=== PATIENT | male | born 1960 | race Caucasian/White ===

== ENCOUNTER 2016-05-03 17:29 | Inpatient (IN) | payer BC ==
[~2016-05-03] VITALS: Ht 193 cm; Wt 113.4 kg
[~2016-05-03 17:29] MED LIST: BUPR150T8 PO; CLON1TAB PO; LAMO200T PO; LAMO200T3 PO
--- NOTE | 2016-05-03 17:57 | PHYS DOC ---
Past Medical History Past Medical History: Anxiety, Arthritis, Bipolar, Depression Past Surgical History: No Surgical History Alcohol Use: Occasionally Drug Use: None Adult General Chief Complaint Chief Complaint: CHEST PAIN HPI HPI Patient is a 55 year old male who presents with complaint of substernal chest pain. Patient states that his symptoms started upon awakening this morning. The patient states that he had pain along the left side of his chest that radiated towards the left side of his neck and his left arm. Patient states he had associated shortness of breath with his symptoms. Patient states his symptoms worsen the ground an hour prior to arrival. Patient had lightheadedness and dizziness as well as shortness of breath with chest pain. The patient went to urgent care and was referred to the emergency department due to symptoms. Patient states his symptoms are still present at this time and rates them at 8 out of 10 currently. Patient is not any fevers or associated cough. Review of Systems Review of Systems Constitutional: Lightheadedness, Denies fever or chills [] Eyes: Denies change in visual acuity, redness, or eye pain [] HENT: Denies nasal congestion or sore throat [] Respiratory: Shortness of breath [] Cardiovascular: Chest pain [] GI: Denies abdominal pain, nausea, vomiting, bloody stools or diarrhea [] : Denies dysuria or hematuria [] Musculoskeletal: Denies back pain or joint pain [] Integument: Denies rash or skin lesions [] Neurologic: Denies headache, focal weakness or sensory changes [] Current Medications Current Medications Current Medications Medications (Trade) Dose Ordered Sig/Leticia Start Time Stop Time Status Last Admin Dose Admin Aspirin (Children'S Aspirin) 324 mg 1X ONCE 05/03/16 18:30 05/03/16 18:31 DC 05/03/16 18:44 324 MG Fentanyl Citrate 50 mcg 50 mcg PRN Q15MIN PRN 05/03/16 18:30 05/04/16 18:29 05/03/16 21:19 50 MCG Ondansetron HCl (Zofran) 4 mg 1X ONCE 05/03/16 18:30 05/03/16 18:31 DC 05/03/16 18:44 4 MG Sodium Chloride (Iv Sodium Chloride 0.9% 1000ml Bag) 1,000 ml @ 100 mls/hr Q10H 05/03/16 18:21 05/04/16 04:20 05/03/16 18:44 100 MLS/HR Allergies Allergies Allergies Coded Allergies Type Severity Reaction Last Updated Verified No Known Drug Allergies 11/28/13 No Physical Exam Physical Exam Constitutional: Well developed, well nourished, no acute distress, non-toxic appearance. [] HENT: Normocephalic, atraumatic, bilateral external ears normal, oropharynx moist, no oral exudates, nose normal. [] Eyes: PERRLA, EOMI, conjunctiva normal, no discharge. [] Neck: Normal range of motion, no tenderness, supple, no stridor. [] Cardiovascular:Heart rate regular rhythm, no murmur [] Lungs & Thorax: Bilateral breath sounds clear to auscultation [] Abdomen: Bowel sounds normal, soft, no tenderness, no masses, no pulsatile masses. [] Skin: Warm, dry, no erythema, no rash. [] Back: No tenderness, no CVA tenderness. [] Extremities: No tenderness, no cyanosis, no clubbing, ROM intact, no edema. [] Neurologic: Alert and oriented X 3, normal motor function, normal sensory function, no focal deficits noted. [] Current Patient Data Vital Signs Vital Signs Date Time Temp Pulse Resp B/P Pulse Ox O2 Delivery O2 Flow Rate FiO2 05/03/16 19:11 84 23 159/88 98 Room Air 05/03/16 17:50 98.3 98.3 Lab Values Laboratory Tests Test 05/03/16 18:00 White Blood Count 6.6x10^3/uL (4.0-11.0) Red Blood Count 4.95x10^6/uL (4.30-5.70) Hemoglobin 15.5g/dL (13.0-17.5) Hematocrit 45.9% (39.0-53.0) Mean Corpuscular Volume 93fL (79-100) Mean Corpuscular Hemoglobin 31pg (25-35) Mean Corpuscular Hemoglobin Concent 34g/dL (31-37) Red Cell Distribution Width 13.2% (11.5-14.5) Platelet Count 250x10^3/uL (140-400) Neutrophils (%) (Auto) 65% (31-73) Lymphocytes (%) (Auto) 23% (24-48) L Monocytes (%) (Auto) 6% (0-9) Eosinophils (%) (Auto) 3% (0-3) Basophils (%) (Auto) 2% (0-3) Neutrophils # (Auto) 4.3x10^3uL (1.8-7.7) Lymphocytes # (Auto) 1.5x10^3/uL (1.0-4.8) Monocytes # (Auto) 0.4x10^3/uL (0.0-1.1) Eosinophils # (Auto) 0.2x10^3/uL (0.0-0.7) Basophils # (Auto) 0.1x10^3/uL (0.0-0.2) Sodium Level 148mmol/L (136-145) H Potassium Level 4.0mmol/L (3.5-5.1) Chloride Level 110mmol/L (98-107) H Carbon Dioxide Level 31mmol/L (21-32) Anion Gap 7 (6-14) Blood Urea Nitrogen 15mg/dL (8-26) Creatinine 0.9mg/dL (0.7-1.3) Estimated GFR (Cockcroft-Gault) 88.3 Glucose Level 122mg/dL (70-99) H Calcium Level 8.7mg/dL (8.5-10.1) Magnesium Level 2.1mg/dL (1.8-2.4) Total Bilirubin 0.4mg/dL (0.2-1.0) Direct Bilirubin 0.1mg/dL (0.0-0.2) Aspartate Amino Transferase (AST) 27U/L (15-37) Alanine Aminotransferase (ALT) 33U/L (16-63) Alkaline Phosphatase 98U/L (46-116) Creatine Kinase 350U/L (39-308) H Creatine Kinase MB (Mass) 9.9ng/mL (0.0-3.6) H Creatine Kinase MB Relative Index 2.8% (0-4) Troponin I Quantitative < 0.017ng/mL (0.000-0.055) AH-Got-A-Type Natriuretic Peptide 27pg/mL (0-124) Total Protein 6.7g/dL (6.4-8.2) Albumin 3.7g/dL (3.4-5.0) Laboratory Tests 05/03/16 18:00 Laboratory Tests 05/03/16 18:00 EKG EKG Interpreted by me: Heart rate 84, sinus rhythm, normal intervals, normal axis, no acute ST/T-wave abnormalities present [] Radiology/Procedures Radiology/Procedures One view AP chest x-ray interpreted by me: No infiltrates, no effusions, normal cardiac silhouette [] Course & Med Decision Making Course & Med Decision Making Pertinent Labs and Imaging studies reviewed. (See chart for details) The patient's lab work does not show immediate evidence of myocardial infarction. The patient however does continue to have left-sided chest pain despite treatment. The patient will be admitted to hospital for rule out of myocardial infarction. Patient was admitted Dr. Bo. A consult was placed to Dr. Morelos to follow patient in hospital. Dragon Disclaimer Dragon Disclaimer This electronic medical record was generated, in whole or in part, using a voice recognition dictation system. Departure Departure Impression: Primary Impression: Chest pain Disposition: ADMITTED INPATIENT Admitting Physician: Marli Bo Condition: STABLE Referrals: TAHIR MICHEL MD (PCP) Problem Qualifiers Primary Impression: Chest pain Chest pain type: unspecified Qualified Code: R07.9 - Chest pain, unspecified DARIN GUTIERREZ MD May 03, 2016 17:57
[2016-05-03] MEDS ORDERED: IV NORMAL SALINE 1000ML BAG 1,000 ML IV SCH (18:21)
[2016-05-03] MEDS ORDERED: ASPIRIN 81 MG TAB.CHEW PO ONE (18:30)
[2016-05-03] MEDS ORDERED: ONDANSETRON PF 4 MG/2 ML VIAL. IV ONE (18:30)
[2016-05-03 18:34] LABS: BASO # 0.1 x10^3/uL (0.0-0.2); BASO % 2 % (0-3); EOS % 3 % (0-3); HEMATOCRIT 45.9 % (39.0-53.0); HEMOGLOBIN 15.5 g/dL (13.0-17.5); LYMPH # 1.5 x10^3/uL (1.0-4.8); LYMPH % 23 % (24-48); MEAN CORPUSCULAR HEMOGLOBIN 31 pg (25-35); MEAN CORPUSCULAR HGB CONC 34 g/dL (31-37); MEAN CORPUSCULAR VOLUME 93 fL (79-100); MONO % 6 % (0-9); NEUT % 65 % (31-73); PLATELET COUNT 250 x10^3/uL (140-400); RED BLOOD COUNT 4.95 x10^6/uL (4.30-5.70); RED CELL DISTRIBUTION WIDTH 13.2 % (11.5-14.5); WHITE BLOOD COUNT 6.6 x10^3/uL (4.0-11.0)
[2016-05-03 18:47] LABS: CALCIUM 8.7 mg/dL (8.5-10.1); CREATININE 0.9 mg/dL (0.7-1.3); GFR 88.3
[2016-05-03] MEDS: FENTANYL PF 100 MCG/2 ML VIAL. IV PRN ×2 (18:47→21:19)
[2016-05-03 18:54] LABS: ALBUMIN 3.7 g/dL (3.4-5.0); DIRECT BILIRUBIN 0.1 mg/dL (0.0-0.2); MAGNESIUM 2.1 mg/dL (1.8-2.4); TOTAL BILIRUBIN 0.4 mg/dL (0.2-1.0); TOTAL PROTEIN 6.7 g/dL (6.4-8.2)
[2016-05-03 19:01] LABS: CKMB INDEX 2.8 % (0-4); CKMB MASS 9.9 ng/mL (0.0-3.6)
[2016-05-03] MEDS ORDERED: ACETAMINOPHEN 325 MG TABLET. PO PRN (19:30)
[2016-05-03] MEDS ORDERED: FENTANYL PF 100 MCG/2 ML VIAL. IV PRN (19:30)
[2016-05-03] MEDS ORDERED: ONDANSETRON PF 4 MG/2 ML VIAL. IV PRN ×2 (19:30)
--- NOTE | 2016-05-03 19:39 | PDOC1 ---
History and Physical Date of Admission Date of Admission DATE: 05/03/16 TIME: 19:33 Identification/Chief Complaint Chief Complaint CP Source Source: Chart review, Patient History of Present Illness History of Present Illness 55 y.o male who is a smoker, and hx Anxiety./depression on lamictal 400 qD, follows with psychiatrist and PCP Lorin arnold, admitted for CP r.o ACS Admitted 01/2016 for similar, MPI was neg. Loop recorder was also done as OP after the MPI was neg and he claims he never heard word from cards, he wore it for 2 weeks. Likely neg results,. Pt comes in bec of left sided chest pressure with radiation to left arm and jaw, some lightheadedness and dizziness,. no diaphoresis. First set CE neg. Not diabetic, no known CAD but is a smoker. BP on high side at ER, sbp 160s Past Medical History Cardiovascular: Other Pulmonary: No pertinent hx CENTRAL NERVOUS SYSTEM: Other GI: No pertinent hx Heme/Onc: No pertinent hx Hepatobiliary: Hep A/B/C Psych: Anxiety, Bipolar, Depression Musculoskeletal: low back pain, Osteoarthritis Rheumatologic: No pertinent hx Infectious disease: No pertinent hx Renal/: No pertinent hx Endocrine: No pertinent hx Past Surgical History Past Surgical History: No pertinent history Family History Family History: No Significant, Hypertension Social History Smoke: <1 pack per day ALCOHOL: occassional Drugs: None Current Problem List Problem List Problems Medical Problems: (1) Chest pain Status: Acute Problems: Current Medications Current Medications Current Medications Aspirin (Children'S Aspirin) 324 mg 1X ONCE PO Last administered on 05/03/16 18:44; Start 05/03/16 at 18:30; Stop 05/03/16 at 18:31; Status DC Fentanyl Citrate 50 mcg 50 mcg PRN Q15MIN PRN IV PAIN GREATER THAN 3/10 Last administered on 05/03/16 18:47; Start 05/03/16 at 18:30; Stop 05/04/16 at 18:29 Sodium Chloride (Iv Sodium Chloride 0.9% 1000ml Bag) 1,000 ml @ 100 mls/hr Q10H IV Last administered on 05/03/16 18:44; Start 05/03/16 at 18:21; Stop at 04:20 Ondansetron HCl (Zofran) 4 mg 1X ONCE IV Last administered on 05/03/16t 18:44 ; Start 05/03/16 at 18:30; Stop 05/03/16 at 18:31; Status DC Ondansetron HCl (Zofran) 4 mg PRN Q8HRS PRN IV NAUSEA/VOMITING; Start 05/03/16 at 19:30; Stop 05/04/16 at 19:29 Fentanyl Citrate 50 mcg 50 mcg PRN Q2HR PRN IV PAIN; Start 05/03/16 at 19:30; Stop 05/04/16 at 19:29 Sodium Chloride (Iv Sodium Chloride 0.9% 1000ml Bag) 1,000 ml @ 100 mls/hr Q10H IV ; Start 05/03/16 at 19:21; Stop 05/04/16 at 19:20 Acetaminophen (Tylenol) 650 mg PRN Q4HRS PRN PO FEVER; Start 05/03/16 at 19:30 ; Stop 05/04/16 at 19:29 Active Scripts Active Reported Lamotrigine 200 Mg Tablet 1 Tab PO BID Lamictal (Lamotrigine) 200 Mg Tablet 200 Mg PO DAILY Allergies Allergies: Coded Allergies: No Known Drug Allergies (Unverified , 11/28/13) ROS General: No: Appetite, Chills, Fatigue, Malaise, Night Sweats, Other PSYCHOLOGICAL ROS: No: Anxiety, Behavioral Disorder, Concentration difficultie , Decreased libido, Depression, Disorientation, Hallucinations, Hostility, Irritablity, Memory difficulties, Mood Swings, Obsessive thoughts, Other, Physical abuse, Sexual abuse, Sleep disturbances, Suicidal ideation Eyes: No Blurry vision, No Decreased vision, No Double vision, No Dry eyes, No Excessive tearing, No Eye Pain, No Itchy Eyes, No Loss of vision, No Other, No Photophobia, No Scotomata, No Uses contacts, No Uses glasses HEENT: No: Epistaxis, Heacaches, Hearing change, Nasal congestion, Nasal discharge, Oral lesions, Other, Sinus pain, Sneezing, Snoring, Sore Throat, Tinnitus, Vertigo, Visual Changes, Vocal changes ALLERGY AND IMMUNOLOGY: No: Hives, Insect Bite Sensitivity, Itchy/Watery Eyes, Nasal Congestion, Other, Post Nasal Drip, Seasonal Allergies ENDOCRINE: No: Breast Changes, Galactorrhea, Hair Pattern Changes, Hot Flashes , Malaise/lethargy, Mood Swings, Other, Palpitations, Polydipsia/polyuria, Skin Changes, Temperature Intolerance, Unexpected Weight Changes Respiratory: No: Cough, Hemoptysis, Orthopnea, Other, Pleuritic Pain, SOB with excertion, Shortness of breath, Sputum Changes, Stridor, Tachypnea, Wheezing Cardiovascular: yes Chest Pain, yes Lt Headedness Gastrointestinal: No Abdominal Pain, No Constipation, No Diarrhea, No Hematochezia, No Melena, No Nausea, No Other, No Vomiting Genitourinary: No , No , No , No , No , No , No , No Discharge, No Dysuria, No Flank Pain, No Frequency, No Hematuria, No Incontinence, No Other, No Pain, No Retention, No Urgency Musculoskeletal: No Gait Disturbance, No Joint Pain, No Joint Stiffness, No Joint Swelling, No Muscle Pain, No Muscular Weakness, No Other, No Pain In:, No Swelling In: Neurological: No Behavorial Changes, No Bowel/Bladder ControlChng, No Confusion , No Dizziness, No Gait Disturbance, No Headaches, No Impaired Coord/balance, No Memory Loss, No Numbness/Tingling, No Other, No Seizures, No Speech Problems , No Tremors, No Visual Changes, No Weakness Skin: No Acne, No Dry Skin, No Eczema, No Hair Changes, No Lumps, No Mole Changes, No Mottling, No Nail Changes, No Other, No Pruritus, No Rash, No Skin Lesion Changes Physical Exam General: Alert, Oriented X3, Cooperative, No acute distress HEENT: Atraumatic, PERRLA, EOMI, Mucous membr. moist/pink Lungs: Clear to auscultation, Normal air movement Heart: S1S2, RRR, no thrills, no rubs, no gallops Cardiovascular: S1, S2 Abdomen: Normal bowel sounds, Soft, No tenderness, No hepatosplenomegaly, No masses Male Genitals Exam: normal genitalia, normal prostate Rectal Exam: not examined PELVIC: Nml ext genitalia Extremities: No clubbing, No cyanosis, No edema, Normal pulses, No tenderness/ swelling Skin: No rashes, No breakdown, No significant lesion Neuro: Normal gait, Normal speech, Strength at 5/5 X4 ext, Normal tone, Sensation intact, Cranial nerves 3-12 NL, Reflexes 2+ Psych/Mental Status: Mental status NL, Mood NL Vitals Vitals Vital Signs Date Time Temp Pulse Resp B/P Pulse Ox O2 Delivery O2 Flow Rate FiO2 05/03/16 18:47 20 99 Room Air 05/03/16 17:50 98.3 89 177/94 98.3 Labs Labs Laboratory Tests Test 05/03/16 18:00 White Blood Count 6.6x10^3/uL (4.0-11.0) Red Blood Count 4.95x10^6/uL (4.30-5.70) Hemoglobin 15.5g/dL (13.0-17.5) Hematocrit 45.9% (39.0-53.0) Mean Corpuscular Volume 93fL (79-100) Mean Corpuscular Hemoglobin 31pg (25-35) Mean Corpuscular Hemoglobin Concent 34g/dL (31-37) Red Cell Distribution Width 13.2% (11.5-14.5) Platelet Count 250x10^3/uL (140-400) Neutrophils (%) (Auto) 65% (31-73) Lymphocytes (%) (Auto) 23% (24-48) Monocytes (%) (Auto) 6% (0-9) Eosinophils (%) (Auto) 3% (0-3) Basophils (%) (Auto) 2% (0-3) Neutrophils # (Auto) 4.3x10^3uL (1.8-7.7) Lymphocytes # (Auto) 1.5x10^3/uL (1.0-4.8) Monocytes # (Auto) 0.4x10^3/uL (0.0-1.1) Eosinophils # (Auto) 0.2x10^3/uL (0.0-0.7) Basophils # (Auto) 0.1x10^3/uL (0.0-0.2) Sodium Level 148mmol/L (136-145) Potassium Level 4.0mmol/L (3.5-5.1) Chloride Level 110mmol/L (98-107) Carbon Dioxide Level 31mmol/L (21-32) Anion Gap 7 (6-14) Blood Urea Nitrogen 15mg/dL (8-26) Creatinine 0.9mg/dL (0.7-1.3) Estimated GFR (Cockcroft-Gault) 88.3 Glucose Level 122mg/dL (70-99) Calcium Level 8.7mg/dL (8.5-10.1) Magnesium Level 2.1mg/dL (1.8-2.4) Total Bilirubin 0.4mg/dL (0.2-1.0) Direct Bilirubin 0.1mg/dL (0.0-0.2) Aspartate Amino Transf (AST/SGOT) 27U/L (15-37) Alanine Aminotransferase (ALT/SGPT) 33U/L (16-63) Alkaline Phosphatase 98U/L (46-116) Creatine Kinase 350U/L (39-308) Creatine Kinase MB (Mass) 9.9ng/mL (0.0-3.6) Creatine Kinase MB Relative Index 2.8% (0-4) Troponin I Quantitative < 0.017ng/mL (0.000-0.055) CK-Hbf-F-Type Natriuretic Peptide 27pg/mL (0-124) Total Protein 6.7g/dL (6.4-8.2) Albumin 3.7g/dL (3.4-5.0) Laboratory Tests Test 05/03/16 18:00 White Blood Count 6.6x10^3/uL (4.0-11.0) Red Blood Count 4.95x10^6/uL (4.30-5.70) Hemoglobin 15.5g/dL (13.0-17.5) Hematocrit 45.9% (39.0-53.0) Mean Corpuscular Volume 93fL (79-100) Mean Corpuscular Hemoglobin 31pg (25-35) Mean Corpuscular Hemoglobin Concent 34g/dL (31-37) Red Cell Distribution Width 13.2% (11.5-14.5) Platelet Count 250x10^3/uL (140-400) Neutrophils (%) (Auto) 65% (31-73) Lymphocytes (%) (Auto) 23% (24-48) Monocytes (%) (Auto) 6% (0-9) Eosinophils (%) (Auto) 3% (0-3) Basophils (%) (Auto) 2% (0-3) Neutrophils # (Auto) 4.3x10^3uL (1.8-7.7) Lymphocytes # (Auto) 1.5x10^3/uL (1.0-4.8) Monocytes # (Auto) 0.4x10^3/uL (0.0-1.1) Eosinophils # (Auto) 0.2x10^3/uL (0.0-0.7) Basophils # (Auto) 0.1x10^3/uL (0.0-0.2) Sodium Level 148mmol/L (136-145) Potassium Level 4.0mmol/L (3.5-5.1) Chloride Level 110mmol/L (98-107) Carbon Dioxide Level 31mmol/L (21-32) Anion Gap 7 (6-14) Blood Urea Nitrogen 15mg/dL (8-26) Creatinine 0.9mg/dL (0.7-1.3) Estimated GFR (Cockcroft-Gault) 88.3 Glucose Level 122mg/dL (70-99) Calcium Level 8.7mg/dL (8.5-10.1) Magnesium Level 2.1mg/dL (1.8-2.4) Total Bilirubin 0.4mg/dL (0.2-1.0) Direct Bilirubin 0.1mg/dL (0.0-0.2) Aspartate Amino Transf (AST/SGOT) 27U/L (15-37) Alanine Aminotransferase (ALT/SGPT) 33U/L (16-63) Alkaline Phosphatase 98U/L (46-116) Creatine Kinase 350U/L (39-308) Creatine Kinase MB (Mass) 9.9ng/mL (0.0-3.6) Creatine Kinase MB Relative Index 2.8% (0-4) Troponin I Quantitative < 0.017ng/mL (0.000-0.055) WC-Ehs-O-Type Natriuretic Peptide 27pg/mL (0-124) Total Protein 6.7g/dL (6.4-8.2) Albumin 3.7g/dL (3.4-5.0) VTE Prophylaxis Ordered VTE Prophylaxis Devices: Yes VTE Pharmacological Prophylaxi: Yes Assessment/Plan Assessment/Plan 1. CP r.o ACS - recent MPI in jan 2016 and possibly even event monitor done as OP neg, CArdiac cath might then be in order - he is not too keen about the idea but agreeable if that is needed 2. ELevated BP, no dx HTN 3. SMOker PLAN: Cycle CE CArds consult Clonidine prn for elevated BP Resume home lamictal NPO after MN Dw pt and ER mD Seen at ER DAYANA BAXTER MD May 03, 2016 19:39
[2016-05-03] MEDS ORDERED: ZOLPIDEM 5 MG TABLET. PO PRN (19:45)
[2016-05-03 21:27] VITALS: BP 150/91
[2016-05-03] MEDS: IV NORMAL SALINE 1000ML BAG 1,000 ML IV SCH (21:29)
[2016-05-03 23:00] VITALS: BP 150/91
--- NOTE | 2016-05-04 00:04 | ACF ---
Admission Forms Criteria CHEST PAIN Clinical Indications for Admission to Inpatient Care (Place 'X' for any and all applicable criteria): Admission is indicated for chest pain and ANY ONE of the following(1)(2)(3)(4)(5 ): [ ]I. Angina with acute coronary syndrome (Also use Myocardial Infarction or Angina guideline) [ ]II. Hemodynamic instability [ ]III. Angina needing acute intervention as indicated by ALL of the following( 11)(12): [ ]a) Unstable angina is present as indicated by angina that is ANY ONE of the following: []i) New onset [ ]ii) Nocturnal [ ]iii) Prolonged at rest [ ]iv) Progressive [ ]b) Angina warrants acute intervention as indicated by ANY ONE of the following: [ ]i) Recurrent angina (e.g, not responding as previously to treatment) [ ]ii) Angina at rest or with low-level activities despite initial medical therapy [ ]iii) New or presumably new ST-segment depression on ECG [ ]iv) Signs or symptoms of heart failure (eg, dyspnea, pulmonary edema) [ ]v) New or worsening mitral regurgitation [ ]vi) Hemodynamic instability [ ]vii) Dangerous arrhythmia (eg, sustained ventricular tachycardia) [ ]viii) History of percutaneous coronary intervention within 6 months [ ]ix) History of coronary artery bypass graft surgery [ ]x) JOYA risk score of 2 or greater[A] [ ]xi) History of Diabetes(14) [ ]xii) High-risk cardiac ischemia findings on noninvasive testing (e.g, echocardiogram, treadmill testing, nuclear scan) [ ]xiii) Chronic renal insufficiency (ie, estimated GFR less than 60 mL/min/1.732m) [ ]xiv) Left ventricular ejection fraction less than 40% [ ]IV. Evidence of MN (eg, cardiac biomarkers positive, ST-segment elevation on ECG) also use Myocardial Infarction Criteria Form. [ ]V. Pulmonary edema [ ]. Respiratory distress [ ]VII. Chest pain indicative of serious diagnosis other than coronary artery disease (eg, aortic dissection) [ ]VIII. Contraindications and/or Inappropriate clinical situations for Observational Care in patients with Chest Pain, when ANY ONE of the following is required: [ ]a) Patient with risk factor for pulmonary embolism, acute coronary syndrome and myocardial infarction (18) [ ]b) Patient with Pulmonary embolism require an average LOS of 4.3 days, therefore emergency department observation management is inappropriate 18,23 [ ]c) Painful condition/s in the elderly, have the highest rate of recidivism after emergency department observation management (10.8%) 20,21,22 [ ]d) Elevated cardiac biomarker requires intensive and exhaustive care (19) [X ]IX. General contraindications and/or Inappropriate clinical situations for Observational Care in patients with Chest Pain, when ANY ONE of the following is required: [X ]a) Prediction of prolongation of LOS based on ANY ONE of the following may be considered as a contraindication for observational care 2, 3, 4, 5, 6, 7, 8, 9, 10, 11 [ ]i) Age > 65 yrs. [ ]ii) Patient arriving by ambulance [ ]iii) Patient with high acuity [ X]iv) Patient requiring vital sign monitoring [X ]v) Patient on IV medication [ ]b) Systolic blood pressures 180mmHg 3,12 [ ]c) Patient with altered mental status including delirium and other alteration of consciousness, (3) [ ]d) Patient whose discharge disposition will be to a residential home or rehabilitation home should not be managed in Emergency Department Observation Unit. CMS rule requires 3 days hospital stay before such placement. 3,13 [ ]e) Patient with failure to thrive due to broad array of etiologies 3,16,17 [ ]f) Inability to ambulate 3,14 Extended stay beyond goal length of stay may be needed for (1)(28): [ ]a) Specific condition diagnosed after evaluation (eg, pulmonary embolism, aortic dissection) [ ]b) Unstable angina [ ]c) Continued suspicion of acute coronary syndrome with inability to complete needed cardiac evaluation (eg, patient clinically unable to undergo stress testing) [ ]d) Myocardial infarction (Contents from ANGINA and CHEST PAIN clinical indications for admission to inpatient care have been integrated in this form) The original [facility] content created by [employer] ([employer]) has been revised. The portions of the content which have been revised are identified through the use of italic text or in bold, and [facility] has neither reviewed nor approved the modified material. All other unmodified content is copyright [facility]. Please see references footnoted in the original [facility] edition 2016 Admission Criteria Met?: Yes ROBYN VIDALES May 04, 2016 00:04
[2016-05-04 00:50] VITALS: BP 150/91
[2016-05-04] MEDS: FENTANYL PF 100 MCG/2 ML VIAL. IV PRN ×2 (01:10→09:15)
[2016-05-04] MEDS: NICOTINE 21MG PATCH. TD PRN ×2 (01:11→13:09)
[2016-05-04 03:59] VITALS: BP 136/77
[2016-05-04 05:00] LABS: BASO % 1 % (0-3); EOS % 4 % (0-3); HEMATOCRIT 42.5 % (39.0-53.0); HEMOGLOBIN 14.2 g/dL (13.0-17.5); LYMPH # 2.3 x10^3/uL (1.0-4.8); LYMPH % 31 % (24-48); MEAN CORPUSCULAR HEMOGLOBIN 31 pg (25-35); MEAN CORPUSCULAR HGB CONC 33 g/dL (31-37); MEAN CORPUSCULAR VOLUME 93 fL (79-100); MONO % 8 % (0-9); NEUT % 56 % (31-73); PLATELET COUNT 218 x10^3/uL (140-400); RED BLOOD COUNT 4.57 x10^6/uL (4.30-5.70); RED CELL DISTRIBUTION WIDTH 13.3 % (11.5-14.5); WHITE BLOOD COUNT 7.4 x10^3/uL (4.0-11.0)
[2016-05-04] MEDS: IV NORMAL SALINE 1000ML BAG 1,000 ML IV SCH (05:25)
[2016-05-04 05:26] LABS: CALCIUM 8.4 mg/dL (8.5-10.1); CREATININE 0.8 mg/dL (0.7-1.3); GFR 101.1
--- NOTE | 2016-05-04 06:17 | EKG ---
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 RI6.01 Unconfirmed report Compared to ECG 02/13/2016 13:43:00 Atrial abnormality now present Electronically Signed On 05-20-2016 9:47:13 TUFT MACHINE OPERATOR by Sahil Walker
[2016-05-04 08:00] VITALS: BP 142/91
--- NOTE | 2016-05-04 08:17 | RAD ---
Portable chest, 05/03/2016: History: Chest pain The heart size and pulmonary vascularity are normal. No pulmonary infiltrate is seen. There is no evidence of pleural fluid. IMPRESSION: No acute cardiopulmonary abnormality is detected.
[2016-05-04] MEDS ORDERED: lamoTRIgine 100 MG TABLET. PO SCH (09:00)
--- NOTE | 2016-05-04 09:22 | PDOC2 ---
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 Siddharth Sherman SOURCE Source: Chart review, Patient HISTORY OF PRESENT ILLNESS HISTORY OF PRESENT ILLNESS 55 year old male who awakened with left upper chest and shoulder pain about 0600 yesterday. 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 No other associated symptoms during the day. 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 Finally presented to ER about 1730 for evaluation. EKG without acute changes and troponin levels X 2 not consistent with ACS. No significant findings in CXR. Accelerated HTN POA with SBP of 177. Continues to request IV narcotics for pain. Reason for Visit: left upper chest pain PAST MEDICAL HISTORY Cardiovascular: Other (elevated BP without diagnosis of HTN) Pulmonary: No pertinent hx CENTRAL NERVOUS SYSTEM: Other (none) GI: No pertinent hx Heme/Onc: No pertinent hx Hepatobiliary: Hep A/B/C (hep C; "cured" ) Psych: Anxiety, Addictions (ETOH), Depression Musculoskeletal: Osteoarthritis Rheumatologic: No pertinent hx Infectious disease: No pertinent hx ENT: No pertinent hx Renal/: Other (renal calculi) Endocrine: No pertinent hx Dermatology: No pertinent hx PAST SURGICAL HISTORY Past Surgical History: No pertinent history FAMILY HISTORY Family History: Hypertension SOCIAL HISTORY Smoke: 1 pack per day (since age 18) ALCOHOL: heavy (one beer daily & 6 -12 beers on weekends) Drugs: None CURRENT MEDICATIONS CURRENT MEDICATIONS Current Medications Medications (Trade) Dose Ordered Sig/Leticia Route PRN Reason Start Time Stop Time Status Last Admin Dose Admin Aspirin (Children'S Aspirin) 324 mg 1X ONCE PO 05/03/16 18:30 05/03/16 18:31 DC 05/03/16 18:44 Fentanyl Citrate 50 mcg 50 mcg PRN Q15MIN PRN IV PAIN GREATER THAN 3/10 05/03/16 18:30 05/04/16 18:29 05/04/16 09:15 Sodium Chloride (Iv Sodium Chloride 0.9% 1000ml Bag) 1,000 ml @ 100 mls/hr Q10H IV 05/03/16 18:21 05/04/16 04:20 DC 05/03/16 18:44 Ondansetron HCl 4 mg 4 mg 1X ONCE IV 05/03/16 18:30 05/03/16 18:31 DC 05/03/16 18:44 Sodium Chloride (Iv Sodium Chloride 0.9% 1000ml Bag) 1,000 ml @ 100 mls/hr Q10H IV 05/03/16 19:21 05/04/16 19:20 05/04/16 05:25 Nicotine (Nicoderm Cq 21mg) 1 patch PRN DAILY PRN TD SMOKING CESSATION 05/03/16 19:30 05/04/16 01:11 ALLERGIES ALLERGIES: Coded Allergies: No Known Drug Allergies (Unverified , 11/28/13) ROS Review of System 14 point review with pertinent positives PHYSICAL EXAM General: Alert, Oriented X3, Cooperative, No acute distress HEENT: Atraumatic, PERRLA Lungs: Clear to auscultation, Normal air movement Heart: Regular rate, Normal S1, Normal S2, No murmurs, Other (pain ? reproducible - unclear) Abdomen: Normal bowel sounds, Soft Extremities: No edema, Normal pulses Skin: No rashes Neuro: Normal speech Psych/Mental Status: Mental status NL, Mood NL MUSCULOSKELETAL: No deformity VITALS VITALS Vital Signs Date Time Temp Pulse Resp B/P Pulse Ox O2 Delivery O2 Flow Rate FiO2 05/04/16 09:15 20 Room Air 05/04/16 08:00 98.3 71 142/91 94 98.3 LABS Lab: Laboratory Tests Test 05/03/16 18:00 05/04/16 01:05 05/04/16 04:00 05/04/16 08:40 White Blood Count 6.6x10^3/uL (4.0-11.0) 7.4x10^3/uL (4.0-11.0) Red Blood Count 4.95x10^6/uL (4.30-5.70) 4.57x10^6/uL (4.30-5.70) Hemoglobin 15.5g/dL (13.0-17.5) 14.2g/dL (13.0-17.5) Hematocrit 45.9% (39.0-53.0) 42.5% (39.0-53.0) Mean Corpuscular Volume 93fL (79-100) 93fL (79-100) Mean Corpuscular Hemoglobin 31pg (25-35) 31pg (25-35) Mean Corpuscular Hemoglobin Concent 34g/dL (31-37) 33g/dL (31-37) Red Cell Distribution Width 13.2% (11.5-14.5) 13.3% (11.5-14.5) Platelet Count 250x10^3/uL (140-400) 218x10^3/uL (140-400) Neutrophils (%) (Auto) 65% (31-73) 56% (31-73) Lymphocytes (%) (Auto) 23% (24-48) 31% (24-48) Monocytes (%) (Auto) 6% (0-9) 8% (0-9) Eosinophils (%) (Auto) 3% (0-3) 4% (0-3) Basophils (%) (Auto) 2% (0-3) 1% (0-3) Neutrophils # (Auto) 4.3x10^3uL (1.8-7.7) 4.1x10^3uL (1.8-7.7) Lymphocytes # (Auto) 1.5x10^3/uL (1.0-4.8) 2.3x10^3/uL (1.0-4.8) Monocytes # (Auto) 0.4x10^3/uL (0.0-1.1) 0.6x10^3/uL (0.0-1.1) Eosinophils # (Auto) 0.2x10^3/uL (0.0-0.7) 0.3x10^3/uL (0.0-0.7) Basophils # (Auto) 0.1x10^3/uL (0.0-0.2) 0.0x10^3/uL (0.0-0.2) Sodium Level 148mmol/L (136-145) 145mmol/L (136-145) Potassium Level 4.0mmol/L (3.5-5.1) 4.0mmol/L (3.5-5.1) Chloride Level 110mmol/L (98-107) 110mmol/L (98-107) Carbon Dioxide Level 31mmol/L (21-32) 27mmol/L (21-32) Anion Gap 7 (6-14) 8 (6-14) Blood Urea Nitrogen 15mg/dL (8-26) 15mg/dL (8-26) Creatinine 0.9mg/dL (0.7-1.3) 0.8mg/dL (0.7-1.3) Estimated GFR (Cockcroft-Gault) 88.3 101.1 Glucose Level 122mg/dL (70-99) 85mg/dL (70-99) Calcium Level 8.7mg/dL (8.5-10.1) 8.4mg/dL (8.5-10.1) Magnesium Level 2.1mg/dL (1.8-2.4) Total Bilirubin 0.4mg/dL (0.2-1.0) Direct Bilirubin 0.1mg/dL (0.0-0.2) Aspartate Amino Transf (AST/SGOT) 27U/L (15-37) Alanine Aminotransferase (ALT/SGPT) 33U/L (16-63) Alkaline Phosphatase 98U/L (46-116) Creatine Kinase 350U/L (39-308) Creatine Kinase MB (Mass) 9.9ng/mL (0.0-3.6) Creatine Kinase MB Relative Index 2.8% (0-4) Troponin I Quantitative < 0.017ng/mL (0.000-0.055) < 0.017ng/mL (0.000-0.055) < 0.017ng/mL (0.000-0.055) LE-Fvw-K-Type Natriuretic Peptide 27pg/mL (0-124) Total Protein 6.7g/dL (6.4-8.2) Albumin 3.7g/dL (3.4-5.0) IMAGES IMAGES CXR - without acute findings EKG EKG no acute changes ECHOCARDIOGRAM ECHOCARDIOGRAM : TTE: The left ventricular systolic function is normal. The Ejection Fraction is 55%. There is normal LV segmental wall motion. Transmitral Doppler flow pattern is Grade I-abnormal relaxation pattern. No significant valvular stenosis or regurgitation. There is no evidence of significant pericardial effusion. STRESS TEST STRESS TEST 02/14/2016: Regadenoson MPI: 1. Regadenoson cardioisotope stress test did not show any evidence of ischemia or infarct. 2. Normal left ventricular systolic function with ejection fraction calculated at 63%. 3. Low risk for cardiac events. ASSESSMENT/PLAN ASSESSMENT/PLAN 1. CP - atypical no acute changes in EKG and troponin levels not consistent with AMI MPI 01/2016 - non-ischemic and low risk echo 01/2016 without significant findings other than diastolic dysfunction no further cardiac evaluation - musculoskeletal vs HTN induced 2. hypertension, benign essential with DD in echo - start ACEI daily; f/u in office in 4 weeks 3. palpitation history event monitor completed Mar 2016 without significant findings 4. polysubstance abuse tobacco and ETOH 6. HLD LDL s = 86, 01/2016 HDLs = 82 7. ? of hypothyroidism TSH of 5.254 - 01/2016 defer to primary service Agreeable with discharge and f/u in office in 4 weeks to re-evaluate BP and left upper chest/shoulder pain Problems: CASS BEDOYA MD 05/05/16 0528: CARDIAC CONSULT ALLERGIES ALLERGIES: Coded Allergies: No Known Drug Allergies (Unverified , 11/28/13) ASSESSMENT/PLAN ASSESSMENT/PLAN Patient seen and examined. Agree with BAKESHOP CLEANER's assessment and plan. CP atypical. KS ruled out. Recent echo showed normal LV function and MPI did not show any ischemia. No further cardiac workup is indicated at this time. Thank you for your consultation. Problems: JESUS DIAZ APRN May 04, 2016 09:22 CASS BEDOYA MD May 05, 2016 05:28
[2016-05-04 11:05] VITALS: BP 129/74
[2016-05-04] MEDS ORDERED: LISINOPRIL 10 MG TABLET PO SCH (12:00)
[2016-05-04 16:30] VITALS: BP 137/83
[2016-05-04] MEDS ORDERED: ACET325T16 PO (17:52)
[2016-05-04] MEDS ORDERED: NAPR375T3 PO (17:52)
--- NOTE | 2016-05-05 23:46 | DS ---
DATE OF DISCHARGE: 05/04/2016 CHIEF COMPLAINT: Chest pain. HOSPITAL COURSE: The patient is a 55-year-old obese gentleman who presented to the hospital with chest pain. He actually had been admitted for the same in 01/2016 and had complete workup including MPI and echo, which were all negative. On current admission, he was ruled out for acute coronary syndrome. Cardiac consult was obtained and he was deemed stable for discharge with outpatient followup. PHYSICAL EXAMINATION: VITAL SIGNS: Showed a blood pressure of 137/83, heart rate of 69, respiratory rate of 20. He is afebrile. GENERAL: This is an obese gentleman, alert and oriented, no acute distress. HEART: Regular rate and rhythm. LUNGS: Clear to auscultation bilaterally. ABDOMEN: Obese, positive bowel sounds. EXTREMITIES: Show no edema. DISCHARGE DISPOSITION: To home. DISCHARGE CONDITION: improved DISCHARGE DIAGNOSES: Chest pain, gastroesophageal reflux disease. DISCHARGE MEDICATIONS: Please refer to MAR. DISCHARGE INSTRUCTIONS: The patient will follow up with his PCP CHEL and with Cardiology as previously arranged. FRANSISCA MCINTOSH MD DR: UR/nts JOB#: [id number] / [id number] TAHIR Rouse MD MTDD
== END 2016-05-04 18:30 | disposition home or self-care (01) | DRG 392 ==
LOC: ER 17:29 → 5 NORTH 19:16
PROVIDERS: ADMIT Internal Medicine; ATTEND Internal Medicine
DX: K21.9 Gastro-esophageal reflux disease without esophagitis (principal); E66.9 Obesity, unspecified; E78.5 Hyperlipidemia, unspecified; Z68.30 Body mass index [BMI] 30.0-30.9, adult; F17.200 Nicotine dependence, unspecified, uncomplicated; F32.9 Major depressive disorder, single episode, unspecified; I10 Essential (primary) hypertension; M19.90 Unspecified osteoarthritis, unspecified site; F41.9 Anxiety disorder, unspecified; F19.10 Other psychoactive substance abuse, uncomplicated; Z82.49 Family history of ischemic heart disease and other diseases of the circulatory system; Z87.442 Personal history of urinary calculi
CPT/HCPCS: 36415; 71010; 80048; 80076; 82553; 83735; 83880; 84484; 85027; 93005; 96374; J2405; J3010; J7030; 99285-25

== ENCOUNTER → 2016-07-20 | Outpatient (CLI) | payer BC ==
[~2016-07-20] MED LIST changes: +ACET325T16 PO; +NAPR375T3 PO
--- NOTE | 2016-07-20 15:42 | RAD ---
PROCEDURE MR of the right shoulder HISTORY Right shoulder and arm pain for 1 year. TECHNIQUE Routine multiplanar sequences are obtained. COMPARISON None FINDINGS The acromioclavicular joint is mildly degenerative. Mild to moderate motion degradation on the exam. Generalized rotator cuff tendon signal compatible with tendinosis. Small partial thickness undersurface tear of the supraspinatus tendon, about 40 percent deep, and measuring about 1 centimeter AP diameter. No large or full-thickness rotator cuff tear is seen. No significant subacromial subdeltoid bursal fluid. No significant joint effusion. No definite labral tear. No paralabral cyst. Biceps tendinosis. No rupture or dislocation. No bone lesion or acute fracture. No acute soft tissue injury. IMPRESSION 1. [id number] motion degradation. 2. Rotator cuff tendinosis. Small partial thickness undersurface tear of the supraspinatus tendon. No full-thickness rupture. 3. Biceps tendinosis. Electronically signed by: Shukri Medina MD (July 20, 2016 15:40:44)
== END | disposition home or self-care (01) ==
LOC: MRI 14:26
DX: M25.511 Pain in right shoulder (principal)
CPT/HCPCS: 73221

== ENCOUNTER → 2017-01-31 | Day surgery (SDC) | payer BC ==
[~2017-01-31] MED LIST changes: +HYDROmorphone 2 MG/ML VIAL IV PRN; +IV RINGERS,LACTATED 1000ML 1,000 ML IV SCH; +LIDOCAINE 1% PF 2 ML VIAL. ID PRN; +LIDOCAINE 2% PF Vial for OR 5 ML VIAL. ONE; +MORPHINE SULFATE 4 MG/ML DISP.SYRIN. IV PRN; +NAPR-695 PO; -NAPR375T3 PO; +ONDANSETRON PF 4 MG/2 ML VIAL. IV PRN; +PROCHLORPERAZINE 10 MG/2 ML VIAL. IV PRN; +PROPOFOL 40 ML IV ONE; +fentaNYL PF VIAL 100 MCG/2 ML VIAL IV PRN
[2017-01-31 13:44] VITALS: BP 117/80
--- NOTE | 2017-01-31 22:50 | CONS ---
DATE OF CONSULTATION: 01/31/2017 REASON FOR CONSULTATION: Family history of colon cancer and polyps. HISTORY OF PRESENT ILLNESS: A 56-year-old male whose past medical history is significant for hypertension; hemorrhoids; hepatitis C, status post clearance; bipolar disorder, seen for a screening colon exam. Bowel habits have been regular without diarrhea or constipation. There has been no melena or hematochezia. Family history is positive for colon cancer with his grandfather. He is here today for surveillance exam. PAST MEDICAL HISTORY: History of hepatitis C, cleared; hypertension. ALLERGIES: None. MEDICATIONS: Include ____, lamotrigine and Lamictal. FAMILY HISTORY AND SOCIAL HISTORY: Family history is significant for colon cancer in his father in his 40s. He is a drinker and smoker. REVIEW OF SYSTEMS: Per records. PHYSICAL EXAMINATION: GENERAL: Reveals a well-nourished, well-developed male, who is alert, conversant, in no acute distress. VITAL SIGNS: Temperature 97, pulse is 82, respiratory rate 20. HEENT: Normocephalic and atraumatic head. Pupils and extraocular movements not tested. Sclerae anicteric. NECK: Supple. LUNGS: Clear. CARDIOVASCULAR: Reveals S1, S2 without S3, S4 or appreciable murmur. ABDOMEN: Reveals a soft abdomen, normal bowel sounds, without appreciable hepatosplenomegaly. EXTREMITIES: Reveals no cyanosis, clubbing or edema. IMPRESSION: Family history of colon cancer. Surveillance exam is warranted at this time. Risks, benefits of procedure including perforation were discussed with the patient, is willing to proceed. JUDITH SALGADO MD DR: JAYLON/maira JOB#: [id number] / [id number]
== END | disposition home or self-care (01) ==
LOC: ENDOS 11:29
PROVIDERS: ATTEND Internal Medicine Gastroenterology
DX: Z80.0 Family history of malignant neoplasm of digestive organs (principal); K57.30 Diverticulosis of large intestine without perforation or abscess without bleeding; K64.0 First degree hemorrhoids; I10 Essential (primary) hypertension; B19.20 Unspecified viral hepatitis C without hepatic coma; F41.9 Anxiety disorder, unspecified; Z82.49 Family history of ischemic heart disease and other diseases of the circulatory system; K21.9 Gastro-esophageal reflux disease without esophagitis; E78.5 Hyperlipidemia, unspecified; F17.200 Nicotine dependence, unspecified, uncomplicated; E66.9 Obesity, unspecified; M19.90 Unspecified osteoarthritis, unspecified site; F31.9 Bipolar disorder, unspecified; Z79.82 Long term (current) use of aspirin; Z79.1 Long term (current) use of non-steroidal anti-inflammatories (NSAID)
CPT/HCPCS: 45378; J2704; J2001